=== PATIENT | female | born 1980 | race Hispanic/Latino ===

== ENCOUNTER 2021-09-19 21:48 | Emergency (ER) | payer OTHER ==
[~2021-09-19] VITALS: Ht 165.1 cm; Wt 81.6 kg
[2021-09-19 22:03] VITALS: BP 102/78
[2021-09-19] MEDS ORDERED: FLUT16H NASAL (23:03)
[2021-09-19] MEDS ORDERED: ACET-66 PO (23:03)
[2021-09-19] MEDS ORDERED: LORA10TA7 PO (23:03)
[2021-09-19] MEDS ORDERED: MV-M1TAB20 PO (23:03)
== END 2021-09-19 23:38 | disposition home or self-care (01) ==
LOC: EDH 21:48
DX: U07.1 COVID-19 (principal); Z90.49 Acquired absence of other specified parts of digestive tract; Z98.890 Other specified postprocedural states
CPT/HCPCS: 87635; 87804 ×2; 87880; 99283; C9803

== ENCOUNTER 2023-02-02 07:35 | Emergency (ER) | payer OTHER ==
[~2023-02-02] VITALS: Ht 165.1 cm; Wt 89.8 kg
[~2023-02-02 07:35] MED LIST: ACET-66 PO; FLUT16H NASAL; LORA10TA7 PO; MV-M1TAB20 PO
[2023-02-02 07:40] VITALS: BP 115/74
[2023-02-02] MEDS ORDERED: SOLU-MEDROL 125MG VIAL IM ONE (08:00)
[2023-02-02] MEDS ORDERED: ACETAMINOPHEN 500 MG TABLET PO ONE (08:00)
[2023-02-02] MEDS ORDERED: NIRM1TAB5 PO (09:31)
[2023-02-02] MEDS ORDERED: GUAI-904 PO (09:31)
[2023-02-02] MEDS ORDERED: IBUP-2070 PO (09:31)
== END 2023-02-02 09:53 | disposition home or self-care (01) ==
LOC: EDH 07:35
DX: U07.1 COVID-19 (principal); J02.9 Acute pharyngitis, unspecified; R50.9 Fever, unspecified; Z90.89 Acquired absence of other organs
CPT/HCPCS: 99283; 87426; 87880; 87804 ×2; 96372; J2930

== ENCOUNTER 2023-11-20 11:14 | Emergency (ER) | payer OTHER ==
[~2023-11-20] VITALS: Ht 165.1 cm; Wt 90.3 kg
[~2023-11-20 11:14] MED LIST changes: +GUAI-904 PO; +IBUP-2070 PO; +NIRM1TAB5 PO
[2023-11-20 11:22] VITALS: BP 138/69; PULSE 55; RESP 17; O2SAT 99
[2023-11-20 11:56] LABS: RAPID GROUP A STREP negative (NEGATIVE)
[2023-11-20 12:04] LABS: SARS-CoV-2, RNA, NAAT NEGATIVE SARS CoV-2 (NEGATIVE)
[2023-11-20 12:06] LABS: INFLUENZA TYPE A Negative For Type A (NEGATIVE)
[2023-11-20 13:21] LABS: INFLUENZA TYPE B Positive For Type B (NEGATIVE)
[2023-11-20] MEDS ORDERED: BENZ-39 PO (13:24)
[2023-11-20] MEDS ORDERED: OSEL75 PO (13:24)
== END 2023-11-20 13:30 | disposition home or self-care (01) ==
LOC: EDH 11:14
DX: J10.1 Influenza due to other identified influenza virus with other respiratory manifestations (principal); Z20.822 Contact with and (suspected) exposure to COVID-19; Z90.49 Acquired absence of other specified parts of digestive tract
CPT/HCPCS: 87635; 87804; 87880

== ENCOUNTER 2025-08-22 20:59 | Emergency (ER) | payer OTHER ==
[~2025-08-22] VITALS: Ht 165.1 cm; Wt 95.7 kg
[~2025-08-22 20:59] MED LIST changes: -ACET-66 PO; +BENZ-39 PO; -FLUT16H NASAL; -GUAI-904 PO; -IBUP-2070 PO; -LORA10TA7 PO; -MV-M1TAB20 PO; -NIRM1TAB5 PO; +OSEL75 PO
--- NOTE | 2025-08-22 23:07 | HMCIMG ---
EXAM: CR right Knee, 3 Views. CLINICAL HISTORY: Fall. COMPARISON: None provided. FINDINGS: BONES: No acute fracture or aggressively appearing osseous lesion. JOINTS: The joint spaces show no significant degenerative disease. There is no joint effusion appreciated. SOFT TISSUES: The soft tissues are unremarkable. IMPRESSION: No acute osseous pathology evident. /[place]
--- NOTE | 2025-08-22 23:09 | HMCIMG ---
EXAM: CR right Hand, 3 Views. CLINICAL HISTORY: Fall. COMPARISON: None provided. FINDINGS: BONES: No acute osseous pathology evident. JOINTS: No evidence of dislocation. The joint spaces are normal. SOFT TISSUES: The soft tissues appear within normal limits. No radiopaque foreign body is seen. IMPRESSION: No acute pathology evident. No acute fracture or dislocation. /[place]
--- NOTE | 2025-08-22 23:14 | HMCIMG ---
EXAM: CR right ankle, 3 Views. CLINICAL HISTORY: Fall COMPARISON: None provided. FINDINGS: BONES: No acute fracture or aggressively appearing osseous lesion. JOINTS: The joint spaces appear within normal limits. No dislocation. No radiographic evidence of a joint effusion. SOFT TISSUES: Soft tissue swelling at the lateral aspect of the ankle. IMPRESSION: No acute osseous abnormality. Soft tissue swelling at the lateral aspect of the ankle. /[place]
--- NOTE | 2025-08-22 23:17 | HMCIMG ---
EXAM: CR right Hand, 3 Views. CLINICAL HISTORY: Fall COMPARISON: None provided. FINDINGS: BONES: No acute osseous pathology evident. JOINTS: No evidence of dislocation. The joint spaces are normal. SOFT TISSUES: Soft tissue swelling in the hand. No radiopaque foreign body is seen. IMPRESSION: No acute pathology evident. No acute fracture or dislocation. Soft tissue swelling in the hand. /[place]
--- NOTE | 2025-08-22 23:25 | ERN ---
ED Note History of Present Illness Stated Complaint: C/O PAIN TO LEFT KNEE AND RT FOOT AFTER FALL Chief Complaint: Mechanical Fall Time Seen by MD: 21:01 Time Seen by Midlevel: 21:01 Dictation: The patient is a 44-year-old female with no significant past medical history who presents to the emergency department with complaints of right ankle pain and swelling after she stepped on a rock causing her ankle to bent and causing her to fall. Patient reports she landed on her left knee and landed on both hands. Fall happened on Thursday. Patient denies any other trauma or injuries from the fall. Allergies: Coded Allergies: No Known Drug Allergies (Unverified Allergy, Unknown, 09/19/21) Home Meds Active Scripts Benzonatate (Tessalon Perles) 100 Mg Cap, 100 MG PO TID for cough, #30 CAP 0 Refills Prov:PIERCE CHAPARRO 11/20/23 Oseltamivir Phosphate (Tamiflu) 75 Mg Cap, 75 MG PO BID for 5 Days, #10 CAP Prov:PIERCE CHAPARRO 11/20/23 Past Medical History Past Medical History: No Pertinent History Surgical History: Other RN Note Reviewed/Agreed w/PFSH: Yes Review of System Dictation Constitutional: Negative for fever,chills, and weight loss Eyes: Negative for injury, pain,redness, and discharge ENT: Negative for injury,pain or swelling Cardiovascular: Negative for chest pain, palpitations, and edema Respiratory: Negative for shortness of breath, cough, and wheezing, Abdomen/GI: Negative for abdominal pain, nausea, vomiting, diarrhea, and constipation Back: Negative for injury and pain : Negative for injury, bleeding and discharge MS/Extremity: Positive for left knee pain, bilateral hand pain, right ankle pain Skin: Negative for rash, and discoloration Neuro: Negative for headache, weakness, numbness, tingling, and seizure Psych: Negative for suicide ideation, homicidal ideation, and hallucinations Initial Vital Sign VS Vital Signs Date Time Temp Pulse Resp B/P (MAP) Pulse Ox O2 Delivery O2 Flow Rate FiO2 08/22/25 21:02 98.8 69 20 158/77 98 Room Air 08/22/25 22:04 0 21 Physical Exam Dictation Vital Signs reviewed General Appearance: Alert, oriented x 3, no acute distress, well developed, nourished. Head and Face: non-traumatic. Eyes: PERRL, pink conjunctivas, eyelid no trauma, anterior chamber with arcus senilis. Ears: Pinnas intact and no signs of trauma or erythema ear canals clear and no discharge TM no erythema Nose: No discharge, no bleeding. Oropharynx: Mouth normal, tongue pink. pharynx clear,no erythema, tonsils no exudates, no abscesses noted, mucous membrane moist Neck: Supple, non-tender, no thyromegaly, no masses, no JVD, no bruits Breast:Deferred Chest:No tenderness, no crepitus, no paradoxical movement, no retractions Lungs:Clear, well-ventilated, symmetric, no rales, no wheezing, no rhonchi, no stridor, good breath sounds bilaterally Heart: Regular rate, regular rhythm, no murmur, no gallops Vascular: no peripheral edema, dorsalis pedis 3+ bilaterally Abdomen: Soft, positive bowel sounds, nondistended, no guarding, nontender, no rebound, no masses no hepatomegaly, no splenomegaly, no Del Real's sign, no hernias. Rectal: Deferred Genital: Deferred Neurological: Normal speech, motor function intact, sensory function intact Musculoskeletal: Neck nontender, full range of motion, back nontender, full range of motion, Extremities: nontender, full range of motion Skin: Color pink, dry, no turgor, no rash, no lacerations, no contusions. Small abrasion to lower palms bilaterally about two cm in diameter, small abrasion to left knee about 3 cm in length, no active bleeding Lymphatic: Deferred Results (Laboratory/Radiology) Laboratory/Radiology REASON: fall ORDERING PHYSICIAN: J[employer] ANALYST PROCEDURE: KNEE 3V LT - KNEE 3VWS LT EXAM: CR right Knee, 3 Views. CLINICAL HISTORY: Fall. COMPARISON: None provided. FINDINGS: BONES: No acute fracture or aggressively appearing osseous lesion. JOINTS: The joint spaces show no significant degenerative disease. There is no joint effusion appreciated. SOFT TISSUES: The soft tissues are unremarkable. IMPRESSION: No acute osseous pathology evident. /[place] REASON: fall ORDERING PHYSICIAN: [employer] ANALYST PROCEDURE: HAND 3V RT - HAND 3+VWS RT EXAM: CR right Hand, 3 Views. CLINICAL HISTORY: Fall COMPARISON: None provided. FINDINGS: BONES: No acute osseous pathology evident. JOINTS: No evidence of dislocation. The joint spaces are normal. SOFT TISSUES: Soft tissue swelling in the hand. No radiopaque foreign body is seen. IMPRESSION: No acute pathology evident. No acute fracture or dislocation. Soft tissue swelling in the hand. /[place] REASON: fall ORDERING PHYSICIAN: [employer] ANALYST PROCEDURE: HAND 3V LT - HAND 3+VWS LT EXAM: CR right Hand, 3 Views. CLINICAL HISTORY: Fall. COMPARISON: None provided. FINDINGS: BONES: No acute osseous pathology evident. JOINTS: No evidence of dislocation. The joint spaces are normal. SOFT TISSUES: The soft tissues appear within normal limits. No radiopaque foreign body is seen. IMPRESSION: No acute pathology evident. No acute fracture or dislocation. /[place] REASON: fall ORDERING PHYSICIAN: J[employer] ANALYST PROCEDURE: [id number] - ANKLE COMP 3VWS RT EXAM: CR right ankle, 3 Views. CLINICAL HISTORY: Fall COMPARISON: None provided. FINDINGS: BONES: No acute fracture or aggressively appearing osseous lesion. JOINTS: The joint spaces appear within normal limits. No dislocation. No radiographic evidence of a joint effusion. SOFT TISSUES: Soft tissue swelling at the lateral aspect of the ankle. IMPRESSION: No acute osseous abnormality. Soft tissue swelling at the lateral aspect of the ankle. /[place] Labs Reviewed?: Yes ED Course ED Course Orders Procedure Category Date Status Time Ankle Comp 3vws Rt RAD 08/22/25 Resulted 21:04 Knee 3vws Lt RAD 08/22/25 Resulted 21:04 Hand 3+Vws Lt RAD 08/22/25 Resulted 21:04 Hand 3+Vws Rt RAD 08/22/25 Resulted 21:04 Acetaminophen 500mg PHA 08/22/25 Complete Tab (Tylenol 500mg T 21:30 Apply Issa Wrap (Er) CPOE 08/22/25 Transmitted 23:18 Current Medications Medications (Trade) Dose Ordered Sig/Lisy Route PRN Reason Start Time Stop Time Status Last Admin Dose Admin Acetaminophen (TYLenol 500MG TAB) 1,000 mg ONCE ONCE PO 08/22/25 21:30 08/22/25 21:31 DC 08/22/25 22:00 Vital Signs Date Time Temp Pulse Resp B/P (MAP) Pulse Ox O2 Delivery O2 Flow Rate FiO2 08/22/25 22:04 98.8 69 20 158/77 98 Room Air* 0 21 08/22/25 21:02 98.8 69 20 158/77 98 Room Air Medical Decision Making MDM The patient is a 44-year-old female with no significant past medical history who presents to the emergency department with complaints of right ankle pain and swelling after she stepped on a rock causing her ankle to bent and causing her to fall. Patient reports she landed on her left knee and landed on both hands. Fall happened on Thursday. Patient denies any other trauma or injuries from the fall. X-rays did not show any fractures or dislocations. Patient is neurovascularly intact, ambulatory, mild abrasions to bilateral palms, healing well. Small abrasion to left knee. No need for any wound repair. Patient reports she is up-to-date with tetanus patient will be discharged to follow up with PCP. Differential diagnosis: Ankle sprain, ankle fracture, left knee sprain, hand fracture Need for hospitalization: Patient does not meet criteria for hospitalization. There are no social concerns with this patient. DX & DISP Disposition: Discharge Departure Impression: Primary Impression: Right ankle sprain Additional Impressions: Left knee sprain, Fall Condition: Stable Additional Instructions: Your x-ray did not show any fractures. Keep your foods clean and dry. Do not put your foods under water, such as in a bath, pool, or hurtado. This can slow healing and raise your chance of getting an infection.. You should call your doctor if you develop any fever, redness or swelling around the cut, or pus draining from the cut. Please follow up with your primary doctor in 1-2 days. FOLLOW-UP WITH PRIMARY CARE PROVIDER IN 1 TO 2 DAYS. TAKE MEDICATIONS DIRECTED HERE IN THE EMERGENCY ROOM. OKAY TO CONTINUE HOME MEDICATIONS UNLESS OTHERWISE DISCUSSED DURING YOUR VISIT IN THE EMERGENCY ROOM TODAY. RETURN TO YOUR NEAREST EMERGENCY ROOM IF SYMPTOMS WORSEN OR IF THERE IS NO IMPROVEMENT. CALL 911 IF YOU NEED IMMEDIATE ASSISTANCE. TAKE TYLENOL LNOI-ERW-AMEATFM NEEDED AND IF NO CONTRAINDICATIONS ARE PRESENT. INCREASE ORAL HYDRATION. A WOUND CULTURE OR URINE CULTURE WAS ORDERED HERE IN THE EMERGENCY ROOM DEPARTMENT PLEASE FOLLOW-UP WITH PRIMARY CARE PROVIDER AND ADVISE THEM TO GET REPEAT PORTS FROM OUR FACILITY. IF YOU HAD ANY ISSA WRAP/SPLINTS THAT WERE APPLIED HERE, PLEASE DO NOT REMOVE THEM UNTIL YOU SEE YOUR PRIMARY CARE OR SPECIALTY. Referrals: SELF,REFERRAL (PCP) CITLALLI BLACKMAN MD Time of Disposition: 23:25 I have reviewed the case, and I agree with, Diagnosis and Plan JUNE [employer] ANALYST Aug 22, 2025 23:25
[2025-08-23 00:07] VITALS: BP 148/76; PULSE 72; RESP 20; TEMP 98.7; O2SAT 98
== END 2025-08-23 00:08 | disposition home or self-care (01) ==
LOC: EDH 20:59
DX: S83.92XA Sprain of unspecified site of left knee, initial encounter (principal); S93.401A Sprain of unspecified ligament of right ankle, initial encounter; W18.39XA Other fall on same level, initial encounter; Y93.01 Activity, walking, marching and hiking; Y92.89 Other specified places as the place of occurrence of the external cause; Y99.8 Other external cause status
CPT/HCPCS: 73130; 73562; 73610; 99284